=== PATIENT | male | born 1995 | race Caucasian/White ===

== ENCOUNTER 2020-05-26 12:14 | Emergency (ER) | payer OTHER, SELFPAY ==
--- NOTE | ~2020-05-26 | CT_ITS ---
EXAMINATION: CT abdomen pelvis w con DATE: 05/26/2020 14:36 INDICATION: Abdominal pain. Nausea and vomiting. TECHNIQUE: Computed tomography (CT) of the abdomen and pelvis was performed with 100 mL Omnipaque 350 intravenous contrast. Automated exposure control and iterative reconstruction technique were employe d. The dose-length product was 221.64 mGy-cm. COMPARISON: None. FINDINGS: The visualized portions of the lung bases are clear without pneumonia or pleural effusion. The heart size is normal. No pericardial effusion. The liver, gallbladder, spleen, pancreas, and adre nal glands are normal. There are cysts in the kidneys measuring up to 17 mm on the left. There are no dilated loops of bowel. There is a short intussusception in the jejunum, likely transient. There are changes of appendectomy. There are no pathologically enlarged lymph nodes. There is no free intraper itoneal fluid. There is a benign bone island in left pelvis. There is mild chronic anterior wedging o f T11 and T12 vertebral bodies. IMPRESSION: 1. No specific etiology for the patient's symptoms. Reviewed, dictated and finalized at location A.
--- NOTE | ~2020-05-26 | XR_ITS ---
EXAMINATION: XR chest 1V portable INDICATION: Shortness of breath TECHNIQUE: Portable AP chest at 1312 hours COMPARISON: 09/29/2019 FINDINGS: The lungs are free of acute opacities. There is no pleural effusion or pneumothorax. The ca rdiomediastinal silhouette is normal. The visualized bones and soft tissues are unremarkable. IMPRESSION: 1. No acute cardiopulmonary abnormality. Reviewed, dictated and finalized at location B.
[2020-05-26 12:18] VITALS: BP 127/81; PULSE 113; RESP 17; TEMP 36.8; O2SAT 100
--- NOTE | 2020-05-26 12:47 | ECG_ITS ---
Measurements Intervals [place] Rate: 101 P: ME: 0 QRS: 91 QRSD: 94 T: 61 QT: 302 QTc: 393 Interpretive Statements SINUS TACHYCARDIA WITH MAKED SINUS ARRHYTHMIA RIGHT AXIS DEVIATION BASELINE ARTIFACT- I, III BORDERLINE ECG Electronically Signed On 05-26-2020 13:56:57 CDT by Jeff Wadsworth D.O.
[2020-05-26 13:24] LABS: Basophils Absolute Auto 0.1 K/mm3 (0.0-0.1); Basophils Percent Auto 0.5 % (0.2-1.2); Eosinophils Absolute Auto 0.1 K/mm3 (0-0.3); Eosinophils Percent Auto 1.1 % (0-4.4); Hemoglobin 16.2 g/dL (14.0-18.0); Immature Granulocyte Absolute 0.04 K/mm3 (0.00-0.031); Immature Granulocyte Percent A 0.4 % (0-0.5); Lymphocytes Absolute Auto 0.88 K/mm3 (0.9-3.2); Lymphocytes Percent Auto 8.1 % (18.3-44.2); Mean Corpuscular HGB Conc 33.8 g/dl (32-36); Mean Corpuscular Hemoglobin 30.1 pg (26-34); Mean Corpuscular Volume 89.1 fl (80-100); Mean Platelet Volume 10.1 fl (7.4-10.4); Monocytes Absolute Auto 0.6 K/mm3 (0.1-0.6); Monocytes Percent Auto 5.9 % (2.6-8.5); Neutrophils Absolute Auto 9.1 K/mm3 (1.3-6.7); Platelet Count Result 294 k/mm3 (150-375); Red Blood Count 5.39 M/mm3 (4.6-6.20); Red Cell Distribution Width 12.1 % (11.5-14.5); White Blood Count 10.8 K/mm3 (4.5-10.0)
[2020-05-26 13:25] LABS: Blood Urea Nitrogen 6 mg/dL (9-20); Calcium 9.2 mg/dL (8.4-10.2); Carbon Dioxide 28 mmol/L (22-30); Chloride 100 mmol/L (98-107); Estimated CRCL calculation 109 ml/min; Estimated Glomerular Filt Rate > 60; Glucose 108 mg/dL (75-110); Sodium 136 mmol/L (137-145)
[2020-05-26 13:37] LABS: Troponin I < 0.012 ng/mL (0.000-0.034)
[2020-05-26 13:38] LABS: D Dimer < 0.22 ug/mL (<0.48)
--- NOTE | 2020-05-26 14:09 | ED.SOB ---
HPI - SOB/Dyspnea General Chief Complaint: Shortness of Breath/Dyspnea Stated Complaint: SOB Time Seen by Provider: 05/26/20 12:47 Source: patient Mode of arrival: ambulatory Limitations: no limitations History of Present Illness HPI Narrative: This is a 24-year-old male that presents to the emergency department for shortness of breath x3 days. Also reports subjective fevers, congestion, sore throat, and cough. Reports he has been having some upper abdominal pain, nausea and vomiting. Reports it feels like an elephant is sitting on his chest. Denies dysuria or hematuria. Related Data Home Medications Medication Instructions Recorded Confirmed No Home Medications 05/26/20 05/26/20 Allergies Allergy/AdvReac Type Severity Reaction Status Date / Time aspirin Allergy Dyspnea / Verified 05/26/20 12:21 SOB Review of Systems Review of Systems: Narrative: CONSTITUTIONAL: Reports fever, chills ENT: Reports congestion, sore throat CARDIOVASCULAR: Reports chest pain RESPIRATORY: Reports cough and dyspnea. GASTROINTESTINAL: Reports abdominal pain, nausea, vomiting GENITOURINARY: Denies dysuria or hematuria. All systems reviewed & are unremarkable except as noted in HPI and below PMFSH Surgical History Surgical History (Updated 09/29/19 @ 19:23 by Dez Paige PA-C) History of appendectomy Social History Social History (Updated 09/29/19 @ 19:23 by Dez Paige PA-C) Smoking status: Current every day smoker Gender identity (if verbalized by the patient): Male Exam Narrative: Exam Narrative: GENERAL: Well-appearing, well-nourished, and in no acute distress. HEAD: Normocephalic, atraumatic. EYES: EOMI. ENT: Nares clear, no rhinorrhea or epistaxis. Mucous membranes moist. Oropharynx without tonsillar hypertrophy exudate or other lesions. Bilateral TMs pearly amaya non-bulging NECK: Supple. No adenopathy or masses. CHEST: Clear to auscultation. No respiratory distress. No wheezes rales or rhonchi HEART: Regular rate and rhythm. No murmur heard. Normal peripheral pulses. ABDOMEN: Soft, nondistended, normal active bowel sounds. Mild tenderness to palpation throughout the right side of the abdomen, without guarding EXTREMITIES: Normal range of motion. No edema. SKIN: Warm, dry, no rash. NEURO: No focal deficits. Alert and oriented x3. PSYCH: Normal mood and affect Course Vital Signs Vital signs: Vital Signs Temperature 98.3 F 05/26/20 12:18 Pulse Rate 113 H 05/26/20 12:18 Respiratory Rate 17 05/26/20 12:18 Blood Pressure 127/81 05/26/20 12:18 Pulse Oximetry 100 05/26/20 12:18 Temperature 98.3 F 05/26/20 12:18 Pulse Rate 90 05/26/20 14:48 Respiratory Rate 18 05/26/20 14:48 Blood Pressure 119/73 05/26/20 14:48 Pulse Oximetry 100 05/26/20 12:18 MDM - SOB/Dyspnea MDM Narrative Medical decision making narrative: Patient presents to the emergency department for cold symptoms x3 days. He is afebrile and nontoxic-appearing. Mildly tachycardic upon arrival, this improved with IV fluids. Otherwise vitals are normal. CBC with mild leukocytosis to 10.8. Metabolic panel without concerning findings. D-dimer and troponin are not elevated. EKG without acute changes. Chest x-ray without acute findings. Patient was also reporting some abdominal pain, nausea and vomiting. CT scan abdomen and pelvis without acute findings. SARS-CoV-2 sent. Patient is stable and felt appropriate for further outpatient evaluation. He is to follow-up with primary care doctor. He was given warnings to return to the ER Lab Data Attestation: I reviewed the patient's lab results. Result diagrams: 05/26/20 13:03 05/26/20 13:03 Labs: Lab Results 05/26/20 05/26/20 05/26/20 Range/Units 13:03 13:03 13:03 WBC 10.8 H (4.5-10.0) K/mm3 RBC 5.39 (4.6-6.20) M/mm3 Hgb 16.2 (14.0-18.0) g/dL Hct 48.0 (42.0-52.0) % MCV 89.1 (80-100) fl MCH
[2020-05-26 14:22] LABS: Alanine Aminotransferase 15 U/L (4-50); Albumin Level 4.5 g/dL (3.5-5.1); Alkaline Phosphatase 86 U/L (38-126); Aspartate Amino Transferase 26 U/L (17-59); Bilirubin,Total 0.7 mg/dL (0.2-1.3); Lipase 30 U/L (23-300)
[2020-05-26] MEDS: ONDANSETRON INJ 4 MG/2 ML VIAL IV PUSH (14:47)
[2020-05-26] MEDS: SODIUM CHLORIDE 0.9% IV 500 ML 999 ML IV CONT (14:47)
[2020-05-26 14:48] VITALS: BP 119/73; PULSE 90; RESP 18
[2020-05-26 15:39] VITALS: BP 116/68; PULSE 68; RESP 20; O2SAT 100
[2020-05-26 15:44] LABS: Add Urine Microscopic? YES; Appearance Urine Clear (Clear); Bilirubin Urine Negative (Negative); Blood Urine Negative (Negative); Color Urine Colorless (Yellow); Glucose Urine UA Negative (Negative); Ketones Urine Negative (Negative); Leukocyte Esterase Ur Trace LEU/UL (Negative); Mucus Urine Rare /lpf; Nitrate Urine Negative (Negative); Protein Urine Negative (Negative); RBC Urine 0-2 /hpf (0-2); Urobilinogen Urine Negative mg/dL (<2.0)
[2020-05-26 15:50] LABS: Specific Grav Ur > 1.060 (1.001-1.035)
[2020-05-26 22:37] LABS: SARS-CoV-2 RNA PCR Negative
== END 2020-05-26 16:00 | disposition home or self-care (01) ==
PROVIDERS: Physician Assistant; Emergency Provider Emergency Medicine
DX: B34.9 Viral infection, unspecified (principal); Z20.828 Contact with and (suspected) exposure to other viral communicable diseases; F17.210 Nicotine dependence, cigarettes, uncomplicated
CPT/HCPCS: 36415; 71045; 74177; 80048; 80076; 81001; 83690; 84484; 85025; 85380; 87635; 93005; 96365; 96375; 99284; C9803; J0131; J2405; J7040; Q9967; U0003

== ENCOUNTER 2022-01-14 10:35 | Emergency (ER) | payer OTHER, SELFPAY ==
--- NOTE | ~2022-01-14 | XR_ITS ---
XR abdomen/kub 1V 01/14/2022 12:13 INDICATION: Flank pain TECHNIQUE: KUB COMPARISON: CT dated 01/14/2022 FINDINGS: Bowel gas pattern is normal. There is no evidence of free air, mass, organomegaly, ascites or obstruction. There is a small stone in the left pelvis near the expected location of the UVJ, con sistent with ureteral stone. Bowel gas pattern nonobstructive. The bones appear intact. IMPRESSION: 1: Left pelvic calcification measuring approximately 3 mm, corresponding to distal ureteral stones se en on CT examination. Reviewed, dictated and finalized at location A. IMPRESSION: 1: Left pelvic calcification measuring approximately 3 mm, corresponding to dis divina ureteral stones seen on CT examination.
--- NOTE | ~2022-01-14 | CT_ITS ---
EXAMINATION: CT abdomen pelvis wo con DATE: 01/14/2022 11:57 INDICATION: Hematuria. Low abdominal pain radiating to the left. TECHNIQUE: Computed tomography (CT) of the abdomen and pelvis was performed without intravenous contr ast. The dose-length product was 211.35 mGy-cm. Automated exposure control and iterative reconstructi on technique were employed. COMPARISON: CT dated 05/26/2020. FINDINGS: Lung bases are unremarkable. No significant pleural or pericardial effusion. The liver, spl een, pancreas, adrenal glands and kidneys are unremarkable. Gallbladder is present. No renal stones o r hydronephrosis. There is a distal left ureteral stone near the UVJ measuring 4 mm. Bladder is decom pressed. Nonobstructive bowel gas pattern. No significant vascular abnormality. Gallbladder is presen t. No free air or free fluid. IMPRESSION: 1. Distal left ureteral stone near the UVJ measuring 4 mm. No significant hydronephrosis. Reviewed, dictated and finalized at location A. IMPRESSION: 1. Distal left ureteral stone near the UVJ measuring 4 mm. No significant hydro nephrosis.
[2022-01-14 10:53] VITALS: BP 120/75; PULSE 85; RESP 16; TEMP 36.8; O2SAT 100
--- NOTE | 2022-01-14 11:01 | ED.GENADULT ---
HPI - General Adult General Chief complaint: Urogenital-Male Stated complaint: hematuria, low abd pain Time Seen by Provider: 01/14/22 10:58 Source: RN notes reviewed History of Present Illness HPI narrative: Patient presents emergency department from home for hematuria. Patient states he began to have some blood in his urine starting last night. States is associated last night with some lower back pain and then this morning has some lower abdominal pain patient notes associated nausea he also states he was sweaty last night with a lower back pain and hematuria. He denies any fevers or chills, chest pain, shortness of breath vomiting or any other symptoms. Denies any history of kidney stones Related Data Allergies Allergy/AdvReac Type Severity Reaction Status Date / Time aspirin Allergy Dyspnea / Verified 01/14/22 11:28 SOB Review of Systems Review of Systems: Gen.: Denies fevers or chills ENT: Denies congestion Respiratory: Denies shortness of breath or cough CV: Denies chest pain or palpitations GI: See HPI reports hematuria Musculoskeletal: Denies back pain or muscle pain Neuro: Denies numbness, tingling, weakness or focal weakness Skin: Denies rash Except as documented, all other systems reviewed and negative PENDING SALE TO [facility] Past Medical History Medical History (Updated 01/14/22 @ 12:26 by Benny Bush DO) Patient denies significant medical history Surgical History Surgical History (Updated 09/29/19 @ 19:23 by Dez Paige PA-C) History of appendectomy Social History Social History (Updated 01/14/22 @ 11:02 by Benny Bush DO) Smoking status: Former smoker Gender identity (if verbalized by the patient): Male Exam Narrative: APPEARANCE: No acute distress, nontoxic, resting in bed EYES: EOMI HEENT: Normocephalic, atraumatic, OMM RESPIRATORY: No respiratory distress Clear to auscultation bilaterally with no rhonchi wheezing or rales. CARDIOVASCULAR: Regular rate and rhythm without murmurs rubs or gallops. ABDOMINAL: Soft, nondistended, tender palpation right lower quadrant left lower quadrant no tenderness right upper quadrant left upper quadrant, no rebound or guarding MUSCULOSKELETAl: Moves all extremities. No clubbing, cyanosis or edema. NEURO: Awake and alert. Following commands, speech normal, no focal deficits SKIN:: Warm, dry. No rashes lesions or abrasions PSYCHIATRIC: Normal affect/mood, Course Course Emergency Course: Discussed with patient results of workup and diagnosis. Discussed need for follow-up with primary care, proper use of medication, and reasons to return to the emergency department. Patient understands and agrees to current treatment plan Vital Signs Vital signs: Vital Signs Temperature 98.2 F 01/14/22 10:53 Pulse Rate 85 01/14/22 10:53 Respiratory Rate 16 01/14/22 10:53 Blood Pressure 120/75 01/14/22 10:53 Pulse Oximetry 100 01/14/22 10:53 Temperature 98.2 F 01/14/22 10:53 Pulse Rate 85 01/14/22 10:53 Respiratory Rate 16 01/14/22 10:53 Blood Pressure 120/75 01/14/22 10:53 Pulse Oximetry 100 01/14/22 10:53 Medical Decision Making Vital Signs Vital Signs: Vital Signs Temperature 98.2 F 01/14/22 10:53 Pulse Rate 85 01/14/22 10:53 Respiratory Rate 16 01/14/22 10:53 Blood Pressure 120/75 01/14/22 10:53 Pulse Oximetry 100 01/14/22 10:53 Temperature 98.2 F 01/14/22 10:53 Pulse Rate 85 01/14/22 10:53 Respiratory Rate 16 01/14/22 10:53 Blood Pressure 120/75 01/14/22 10:53 Pulse Oximetry 100 01/14/22 10:53 Lab Data Result diagrams: 01/14/22 11:24 01/14/22 11:24 Labs: Lab Results 01/14/22 01/14/22 01/14/22 Range/Units 11:22 11:24 11:24 WBC 6.6 (4.5-10.0) K/mm3 RBC 5.47 (4.6-6.20) M/mm3 Hgb 16.6 (14.0-18.0) g/dL Hct 49.1 (42.0-52.0) % MCV 89.8 (80-100) fl MCH 30.3 (26-34) pg MCHC 33.8 (32-36) g/dl RDW 1
[2022-01-14] MEDS: SODIUM CHLORIDE 0.9% IV 1,000 ML 999 ML IV CONT (11:26)
[2022-01-14] MEDS: ONDANSETRON INJ 4 MG/2 ML VIAL IV PUSH (11:26)
[2022-01-14 11:30] LABS: Basophils Percent Auto 0.6 % (0.2-1.2); Eosinophils Absolute Auto 0.1 K/mm3 (0-0.3); Eosinophils Percent Auto 1.2 % (0-4.4); Hematocrit 49.1 % (42.0-52.0); Hemoglobin 16.6 g/dL (14.0-18.0); Immature Granulocyte Absolute 0.02 K/mm3 (0.00-0.031); Immature Granulocyte Percent A 0.3 % (0-0.5); Lymphocytes Absolute Auto 2.08 K/mm3 (0.9-3.2); Lymphocytes Percent Auto 31.4 % (18.3-44.2); Mean Corpuscular HGB Conc 33.8 g/dl (32-36); Mean Corpuscular Hemoglobin 30.3 pg (26-34); Mean Corpuscular Volume 89.8 fl (80-100); Mean Platelet Volume 9.3 fl (7.4-10.4); Monocytes Absolute Auto 0.5 K/mm3 (0.1-0.6); Monocytes Percent Auto 7.1 % (2.6-8.5); Neutrophils Absolute Auto 3.9 K/mm3 (1.3-6.7); Neutrophils Percent Auto 59.4 % (45.5-73.1); Platelet Count Result 308 k/mm3 (150-375); Red Blood Count 5.47 M/mm3 (4.6-6.20); Red Cell Distribution Width 12.2 % (11.5-14.5); White Blood Count 6.6 K/mm3 (4.5-10.0)
[2022-01-14 11:41] LABS: Alanine Aminotransferase 22 U/L (4-50); Albumin Level 4.7 g/dL (3.5-5.1); Alkaline Phosphatase 77 U/L (38-126); Anion Gap 2 mmol/L (8-16); Aspartate Amino Transferase 29 U/L (17-59); Bilirubin,Total 0.7 mg/dL (0.2-1.3); Blood Urea Nitrogen 7 mg/dL (9-20); Calcium 9.1 mg/dL (8.4-10.2); Carbon Dioxide 33 mmol/L (22-30); Chloride 102 mmol/L (98-107); Estimated CRCL calculation 120 ml/min; Estimated Glomerular Filt Rate > 60; Glucose 103 mg/dL (65-110); Potassium 4.2 mmol/L (3.4-5.0); Sodium 137 mmol/L (137-145)
[2022-01-14 11:44] LABS: Add Urine Microscopic? YES; Appearance Urine Cloudy (Clear); Bilirubin Urine Negative (Negative); Blood Urine 3+ (Negative); Color Urine Yellow (Yellow); Glucose Urine UA Negative (Negative); Ketones Urine Trace mg/dL (Negative); Leukocyte Esterase Ur Negative LEU/UL (Negative); Mucus Urine Rare /lpf; Nitrate Urine Negative (Negative); Protein Urine Negative (Negative); RBC Urine >75 /hpf (0-2); Specific Grav Ur 1.019 (1.001-1.035); Squamous Epithelial Cell Urine Rare /hpf (Few); Urobilinogen Urine Negative mg/dL (<2.0)
[2022-01-14] MEDS: TAMSULOSIN HCL 0.4 MG CAPSULE PO (12:49)
[2022-01-14 12:54] VITALS: BP 119/73; PULSE 86; RESP 18; O2SAT 100
== END 2022-01-14 12:55 | disposition home or self-care (01) ==
PROVIDERS: Emergency Provider Emergency Medicine
DX: N20.0 Calculus of kidney (principal); Z87.891 Personal history of nicotine dependence
CPT/HCPCS: 36415; 74018; 74176; 80053; 81001; 85025; 96365; 96375; 99284; A9270; J0131; J2405; J7030

== ENCOUNTER 2022-05-15 10:50 | Emergency (ER) | payer OTHER, SELFPAY ==
--- NOTE | ~2022-05-15 | XR_ITS ---
EXAMINATION: XR chest 2V DATE: 05/15/2022 11:22 INDICATION: Shortness of breath, chest pain and midline chest tightness. TECHNIQUE: PA and lateral views of the chest were obtained. COMPARISON: Chest radiograph dated 05/26/2020 and 09/29/2019 FINDINGS: The lungs remain clear with no focal airspace opacities, pulmonary edema, pleural effusion or pneumot horax. The cardiomediastinal silhouette is normal. Moderate thoracic spondylosis with chronic mild an terior wedging of a lower thoracic vertebral body, likely T11. IMPRESSION: 1. No acute cardiopulmonary disease. Reviewed, dictated and finalized at location A.
--- NOTE | 2022-05-15 10:52 | ECG_ITS ---
Measurements Intervals [place] Rate: 80 P: 50 TN: 165 QRS: 72 QRSD: 95 T: 56 QT: 334 QTc: 388 Interpretive Statements SINUS RHYTHM WITH MARKED SINUS ARRHYTHMIA NORMAL ECG Electronically Signed On 05-15-2022 10:57:51 CDT by Jeff Wadsworth D.O.
[2022-05-15 11:01] VITALS: BP 112/83; PULSE 87; RESP 16; TEMP 36.5; O2SAT 99
[2022-05-15 11:06] LABS: Basophils Absolute Auto 0.1 K/mm3 (0.0-0.1); Basophils Percent Auto 0.6 % (0.2-1.2); Eosinophils Absolute Auto 0.1 K/mm3 (0-0.3); Eosinophils Percent Auto 0.5 % (0-4.4); Hematocrit 46.4 % (42.0-52.0); Hemoglobin 15.2 g/dL (14.0-18.0); Immature Granulocyte Absolute 0.03 K/mm3 (0.00-0.031); Immature Granulocyte Percent A 0.3 % (0-0.5); Lymphocytes Absolute Auto 3.08 K/mm3 (0.9-3.2); Lymphocytes Percent Auto 31.5 % (18.3-44.2); Mean Corpuscular HGB Conc 32.8 g/dl (32-36); Mean Corpuscular Hemoglobin 29.9 pg (26-34); Mean Corpuscular Volume 91.2 fl (80-100); Mean Platelet Volume 9.5 fl (7.4-10.4); Monocytes Absolute Auto 0.7 K/mm3 (0.1-0.6); Monocytes Percent Auto 7.6 % (2.6-8.5); Neutrophils Absolute Auto 5.8 K/mm3 (1.3-6.7); Neutrophils Percent Auto 59.5 % (45.5-73.1); Platelet Count Result 308 k/mm3 (150-375); Red Blood Count 5.09 M/mm3 (4.6-6.20); Red Cell Distribution Width 12.5 % (11.5-14.5); White Blood Count 9.8 K/mm3 (4.5-10.0)
[2022-05-15 11:15] LABS: Alanine Aminotransferase 25 U/L (6-50); Albumin Level 4.6 g/dL (3.5-5.1); Alkaline Phosphatase 73 U/L (38-126); Anion Gap 7 mmol/L (8-16); Aspartate Amino Transferase 24 U/L (17-59); Bilirubin,Total 0.9 mg/dL (0.2-1.3); Blood Urea Nitrogen 8 mg/dL (9-20); Calcium 8.6 mg/dL (8.4-10.2); Carbon Dioxide 25 mmol/L (22-30); Chloride 106 mmol/L (98-107); Estimated CRCL calculation 136 ml/min; Estimated Glomerular Filt Rate > 60; Glucose 107 mg/dL (65-110); Lipase 38 U/L (23-300); Potassium 3.5 mmol/L (3.4-5.0); Sodium 138 mmol/L (137-145)
[2022-05-15 11:25] LABS: Partial Thromboplastin Time 26.5 SECONDS (22.3-36.8); Prothrombin Time 12.9 Seconds (11.1-14.7)
[2022-05-15 11:27] LABS: Troponin I < 0.012 ng/mL (0.000-0.034)
[2022-05-15 14:30] LABS: Troponin I < 0.012 ng/mL (0.000-0.034)
--- NOTE | 2022-05-15 14:48 | ED.GENADULT ---
HPI - General Adult General Chief complaint: Chest Pain Stated complaint: SOB, CP Time Seen by Provider: 05/15/22 12:30 History of Present Illness HPI narrative: 26-year-old male presenting to the emergency department for evaluation of intermittent cough with associated sharp chest pain. Patient states he began developing the cough on Sunday and did have follow-up with his primary care physician. Patient did have negative outpatient COVID testing on Sunday. Patient was started on azithromycin and prednisone by his primary care physician. Patient states he is still having intermittent chest pain but denies any associated shortness of breath. Patient states the chest pain is worsened with coughing and with deep inspiration. Patient has no prior history of PE or DVT. Patient is COVID-negative. Related Data Allergies Allergy/AdvReac Type Severity Reaction Status Date / Time aspirin Allergy Dyspnea / Verified 01/14/22 11:28 SOB Review of Systems Review of Systems: CONSTITUTIONAL: Denies fever, chills, or sweats. EYES: Denies visual changes, redness, or discharge. ENT: Denies rhinorrhea, congestion, sore throat, or otalgia. CARDIOVASCULAR: See HPI RESPIRATORY: Denies cough or dyspnea. GASTROINTESTINAL: Denies abdominal pain, nausea, vomiting, or diarrhea. GENITOURINARY: Denies dysuria or hematuria. SKIN: Denies rash or itching. MUSCULOSKELETAL: Denies back pain, joint pain, or myalgia. NEUROLOGIC: Denies headache, numbness, or weakness. [facility] Past Medical History Medical History (Updated 05/15/22 @ 14:59 by Jad Alonso MD) Patient denies significant medical history Surgical History Surgical History (Updated 09/29/19 @ 19:23 by Dez Paige, PAJoshuaC) History of appendectomy Social History Social History (Updated 01/14/22 @ 11:02 by Benny Bush DO) Smoking status: Former smoker Gender identity (if verbalized by the patient): Male Exam Narrative: APPEARANCE: Well appearing, no pain, no distress, well-nourished. HEAD: normocephalic, atraumatic. EYES: PERRLA/EOMI, conjunctivae clear. NOSE: Normal no drainage NECK: Supple. No adenopathy, no masses. RESPIRATORY: Airway patent, respirations nonlabored. Clear to auscultation bilaterally, no rales, rhonchi, wheezing. CARDIOVASCULAR: Regular rate and rhythm without murmurs rubs or gallops. ABDOMINAL: Soft, nontender, nondistended, normal bowel sounds MUSCULOSKELETAL: Moves all extremities. Strength/ROM intact, No edema, No calf tenderness. NEURO: Alert. Cranial nerves II through XII intact. Grossly intact SKIN: Warm, dry. Normal Color Course Course Emergency Course: Patient is afebrile. No leukocytosis. Chest x-ray shows no acute abnormality. Vital Signs Vital signs: Vital Signs Temperature 97.7 F 05/15/22 11:01 Pulse Rate 87 05/15/22 11:01 Respiratory Rate 16 05/15/22 11:01 Blood Pressure 112/83 05/15/22 11:01 Pulse Oximetry 99 05/15/22 11:01 Oxygen Delivery Room Air 05/15/22 11:01 Temperature 97.7 F 05/15/22 11:01 Pulse Rate 78 05/15/22 15:06 Respiratory Rate 18 05/15/22 15:06 Blood Pressure 126/78 05/15/22 15:06 Pulse Oximetry 99 05/15/22 15:06 Oxygen Delivery Room Air 05/15/22 11:01 Medical Decision Making Vital Signs Vital Signs: Vital Signs Temperature 97.7 F 05/15/22 11:01 Pulse Rate 87 05/15/22 11:01 Respiratory Rate 16 05/15/22 11:01 Blood Pressure 112/83 05/15/22 11:01 Pulse Oximetry 99 05/15/22 11:01 Oxygen Delivery Room Air 05/15/22 11:01 Temperature 97.7 F 05/15/22 11:01 Pulse Rate 78 05/15/22 15:06 Respiratory Rate 18 05/15/22 15:06 Blood Pressure 126/78 05/15/22 15:06 Pulse Oximetry 99 05/15/22 15:06 Oxygen Delivery Room Air 05/15/22 11:01 Lab Data Lab results reviewed: Yes I reviewed the patient's lab results. Result diagrams: 05/15/22 11:00 05/15/22 11:00 Labs: Lab Results
[2022-05-15] MEDS: IBUPROFEN 600 MG TABLET PO (14:58)
[2022-05-15 15:06] VITALS: BP 126/78; PULSE 78; RESP 18; O2SAT 99
== END 2022-05-15 15:09 | disposition home or self-care (01) ==
PROVIDERS: Emergency Provider Emergency Medicine; PCP Nurse Practitioner Family
DX: R09.1 Pleurisy (principal); R07.89 Other chest pain; Z87.891 Personal history of nicotine dependence
CPT/HCPCS: 36415; 71046; 80053; 83690; 84484; 85025; 85610; 85730; 93005; 99284; A9270

== ENCOUNTER 2022-08-08 18:01 | Emergency (ER) | payer OTHER, SELFPAY ==
--- NOTE | ~2022-08-08 | XR_ITS ---
EXAMINATION: XR chest 2V Exam Date/Time: 08/08/2022 19:20 CDT HISTORY: cough,fever,mid-sternal chest pressure x3days. no cardiac hx Comparison: 05/15/2022. RESULT: Lines, tubes, and devices: None. Lungs and pleura: Ill-defined subsegmental opacity in the right lower lung, with no correlate in the lateral, likely represents artifact. No focal consolidation. Cardiomediastinal silhouette: Stable. Other: No acute osseous or upper abdominal finding. IMPRESSION: No acute cardiopulmonary process. Reviewed, dictated and finalized at location K.
[2022-08-08 18:30] VITALS: BP 112/80; PULSE 80; RESP 20; TEMP 36.8; O2SAT 98
--- NOTE | 2022-08-08 18:34 | ED.URI ---
HPI - URI/Sore Throat General Chief Complaint: Upper Respiratory Infection Stated Complaint: fever History of Present Illness HPI Narrative: 19-year-old male history of asthma presents to the emergency room with his spouse and 2 children for complaints of sinus congestion postnasal drip, fevers, body aches. Patient states he has been alternating Tylenol and ibuprofen for his fevers and body aches. Related Data Allergies Allergy/AdvReac Type Severity Reaction Status Date / Time aspirin Allergy Dyspnea / Verified 01/14/22 11:28 SOB Review of Systems Review of Systems: CONSTITUTIONAL: Reports fever, chills, or sweats. EYES: Denies visual changes, redness, or discharge. ENT: Reports rhinorrhea, congestion, sore throat, or otalgia. CARDIOVASCULAR: Denies chest pain, palpitations, or edema. RESPIRATORY: Denies cough or dyspnea. GASTROINTESTINAL: Denies abdominal pain, nausea, vomiting, or diarrhea. GENITOURINARY: Denies dysuria or hematuria. SKIN: Denies rash or itching. MUSCULOSKELETAL: Denies back pain, joint pain, or myalgia. NEUROLOGIC: Denies headache, numbness, dizziness, or weakness. PSYCHIATRIC: Denies anxiety or depression. [facility] Past Medical History Medical History (Updated 08/08/22 @ 19:47 by Breezy Cuellar, ORGANIZATIONAL CONSULTANT) Patient denies significant medical history Surgical History Surgical History (Updated 09/29/19 @ 19:23 by Dez Paige, PASasha) History of appendectomy Social History Social History (Updated 01/14/22 @ 11:02 by Benny Bush, DO) Smoking status: Former smoker Gender identity (if verbalized by the patient): Male Exam Narrative: GENERAL: Ill-appearing, well-nourished, no physical limitations, and in no acute distress. HEAD: Normocephalic, atraumatic. EYES: Conjunctivae normal, PERRLA and EOMI. ENT: External nose normal, Nares clear, no rhinorrhea or epistaxis. Mucous membranes moist. Oropharynx without tonsillar hypertrophy exudate or other lesions. External ears normal, bilateral TMs normal bilaterally NECK: Supple. No adenopathy or masses. CHEST: Clear to auscultation. No respiratory distress. No wheezes rales or rhonchi. No tenderness. HEART: Regular rate and rhythm. No murmur heard. Normal peripheral pulses. ABDOMEN: Soft, nontender, nondistended, normal active bowel sounds. EXTREMITIES: Normal range of motion. No edema. No clubbing or cyanosis SKIN: Warm, dry, no rash. No noted wounds NEURO: No focal deficits. Alert and oriented x3. MAEW. CN's II-XI intact bilaterally, normal gait PSYCH: Cooperative. Normal mood and affect. Course Vital Signs Vital signs: Vital Signs Temperature 36.8 C 08/08/22 18:30 Pulse Rate 80 08/08/22 18:30 Respiratory Rate 20 08/08/22 18:30 Blood Pressure 112/80 08/08/22 18:30 Pulse Oximetry 98 08/08/22 18:30 Oxygen Delivery Room Air 08/08/22 18:30 Temperature 36.8 C 08/08/22 18:30 Pulse Rate 80 08/08/22 18:30 Respiratory Rate 20 08/08/22 18:30 Blood Pressure 112/80 08/08/22 18:30 Pulse Oximetry 98 08/08/22 18:30 Oxygen Delivery Room Air 08/08/22 18:30 MDM - URI/Sore Throat Lab Data Labs: Lab Results 08/08/22 Range/Units 18:22 Influenza A (RT-PCR) Negative (Negative) Influenza B (RT-PCR) Negative (Negative) SARS-CoV-2 RNA (RT-PCR) Negative Discharge Plan Discharge Clinical Impression: Upper respiratory infection Patient Disposition: Home, Self-Care Condition: Stable Instructions: Antibiotic Form, Upper Respiratory Infection (ED) Additional Instructions: May take Sudafed, Flonase Tylenol and ibuprofen for your symptoms. Prescriptions: New albuterol sulfate [ProAir HFA] 90 mcg/actuation HFA aerosol inhaler 1 inh inhalation QID PRN (Reason: shortness of breath or wheezing) Qty: 6.7 0RF No Action albuterol sulfate 90 mcg/actuation HFA aerosol inhaler 1 puff inhalation QID PRN (Reason: shortness of breath or wheezing) Qty: 6.7 0
[2022-08-08 19:05] LABS: Influenza A QL RT-PCR Negative (Negative); Influenza B QL RT-PCR Negative (Negative); SARS-CoV-2 RNA PCR Negative
== END 2022-08-08 20:03 | disposition home or self-care (01) ==
PROVIDERS: Emergency Provider Nurse Practitioner Family; PCP Nurse Practitioner Family
DX: J06.9 Acute upper respiratory infection, unspecified (principal); Z20.822 Contact with and (suspected) exposure to COVID-19
CPT/HCPCS: 71046; 87502; 99283; C9803; U0003; U0005